=== PATIENT | female | born 1970 | race Caucasian/White ===

== ENCOUNTER 2022-10-12 13:45 | Emergency (ER) | payer OTHER ==
[~2022-10-12] VITALS: Ht 175.3 cm; Wt 95.2 kg
[2022-10-12] MEDS ORDERED: RISP.25 PO (14:35)
[2022-10-12] MEDS ORDERED: Prozac20 MG PO (14:35)
== END 2022-10-12 15:00 | disposition home or self-care (01) ==
LOC: ER 13:45
DX: Z76.0 Encounter for issue of repeat prescription (principal); F32.A Depression, unspecified; Z88.1 Allergy status to other antibiotic agents; Z79.899 Other long term (current) drug therapy
CPT/HCPCS: 99281

== ENCOUNTER 2022-11-23 10:16 | Emergency (ER) | payer OTHER ==
[~2022-11-23] VITALS: Ht 154.9 cm; Wt 102.1 kg
[~2022-11-23 10:16] MED LIST: HYDPAM50 PO; HYDR1TAB94 PO; IBUP800 PO; NABU500 PO; Prozac20 MG PO; RISP.25 PO; TIZA4 PO
[2022-11-23] MEDS ORDERED: Norco 5-325 Ta1 EACH PO (10:36)
== END 2022-11-23 10:38 | disposition home or self-care (01) ==
LOC: ER 10:16
DX: M20.012 Mallet finger of left finger(s) (principal); Z88.1 Allergy status to other antibiotic agents; Z79.899 Other long term (current) drug therapy
CPT/HCPCS: 99282

== ENCOUNTER 2023-01-09 09:01 | Emergency (ER) | payer OTHER ==
[~2023-01-09] VITALS: Ht 154.9 cm; Wt 91.2 kg
[~2023-01-09 09:01] MED LIST changes: +Norco 5-325 Ta1 EACH PO
[2023-01-09] MEDS ORDERED: EUTHYROX50 MC1 PO (09:21)
[2023-01-09 10:41] LABS: BASOPHILS ABSOLUTE AUTO 0.04 K/mm3 (0.00-0.23); BASOPHILS PERCENT AUTO 0 % (0-2); EOSINOPHILS ABSOLUTE AUTO 0.21 K/mm3 (0.00-0.68); EOSINOPHILS PERCENT AUTO 2 % (0-6); Hematocrit 43.8 % (33.0-51.0); Hemoglobin 14.2 g/dL (11.5-16.0); IMMATURE GRAN ABSOLUTE AUTO 0.03 K/mm3 (0.00-0.10); IMMATURE GRAN PERCENT AUTO 0 % (0-1); LYMPHOCYTES PERCENT AUTO 20 % (21-46); MONOCYTES ABSOLUTE AUTO 0.56 K/mm3 (0.16-1.47); MONOCYTES PERCENT AUTO 6 % (4-13); Mean Corpuscular HGB Conc 32.4 g/dL (31.5-36.5); Mean Corpuscular Volume 90 fL (80-100); Mean Platelet Volume 9.9 fL (9.1-12.4); NEUTROPHILS PERCENT AUTO 71 % (41-73); Platelet Count 232 K/mm3 (150-400); RDW Coefficient Variation 13.8 % (11.7-14.2); RDW Standard Deviation 45.7 fL (35.1-46.3); Red Blood Cell Count 4.89 M/mm3 (3.80-5.20); White Blood Cell Count 9.34 K/mm3 (4.00-11.30)
[2023-01-09 11:11] LABS: Thyroid Stimulating Hormone 3.41 uIU/mL (0.360-4.800)
[2023-01-09 11:12] LABS: Albumin, Blood 3.6 g/dL (3.4-5.0); Bilirubin, Total 0.3 mg/dL (0.1-1.0); Bun/Creatinine Ratio 19.5 (12.0-20.0); Calcium, Blood 9.3 mg/dL (8.5-10.1); Creatinine, Blood 0.67 mg/dL (0.40-1.00); Globulin, Blood 3.5 g/dL (2.2-4.0); Potassium, Blood 4.1 mmol/L (3.5-5.5); Total Protein, Blood 7.1 g/dL (6.4-8.2)
[2023-01-09] MEDS ORDERED: PROM25 PO (12:14)
== END 2023-01-09 12:26 | disposition home or self-care (01) ==
LOC: ER 09:01
PROVIDERS: Family Medicine
DX: R42 Dizziness and giddiness (principal); Z79.899 Other long term (current) drug therapy; Z88.1 Allergy status to other antibiotic agents; Z79.890 Hormone replacement therapy
CPT/HCPCS: 36415; 80053; 82947; 84443; 84484; 85025; 93005; 93010; 93242; 99283-25

== ENCOUNTER 2023-04-08 16:25 | Emergency (ER) | payer OTHER ==
[~2023-04-08] VITALS: Ht 154.9 cm; Wt 93.0 kg
[~2023-04-08 16:25] MED LIST changes: +EUTHYROX50 MC1 PO; +PROM25 PO
[2023-04-08 16:46] VITALS: BP 112/59
[2023-04-08] MEDS ORDERED: TRAM50 PO (17:42)
== END 2023-04-08 17:52 | disposition home or self-care (01) ==
LOC: ER 16:25
DX: M17.12 Unilateral primary osteoarthritis, left knee (principal); Z88.1 Allergy status to other antibiotic agents; Z79.899 Other long term (current) drug therapy
CPT/HCPCS: 99283

== ENCOUNTER 2023-05-07 10:21 | Emergency (ER) | payer OTHER ==
[~2023-05-07] VITALS: Ht 154.9 cm; Wt 90.7 kg
[~2023-05-07 10:21] MED LIST changes: +TRAM50 PO
[2023-05-07 10:49] VITALS: BP 116/64
== END 2023-05-07 14:00 | disposition home or self-care (01) ==
LOC: ER 10:21
DX: F25.9 Schizoaffective disorder, unspecified (principal); Z76.0 Encounter for issue of repeat prescription; F41.9 Anxiety disorder, unspecified; Z88.1 Allergy status to other antibiotic agents
CPT/HCPCS: 99283; A9270

== ENCOUNTER 2023-07-13 11:30 | Emergency (ER) | payer OTHER ==
[~2023-07-13] VITALS: Ht 154.9 cm; Wt 102.1 kg
[~2023-07-13 11:30] MED LIST changes: +Hydroxyzine HCl50 MG PO; +LEVSOD25 PO; +[UNRECOGNIZED DRUG - REMARK] IM
[2023-07-13 11:38] VITALS: BP 112/65
[2023-07-13] MEDS ORDERED: ABILIFY MYCITE2 M2 PO (11:40)
[2023-07-13] MEDS ORDERED: IBUP600 PO (12:59)
== END 2023-07-13 13:38 | disposition home or self-care (01) ==
LOC: ER 11:30
DX: M25.512 Pain in left shoulder (principal); Z88.8 Allergy status to other drugs, medicaments and biological substances; Z88.1 Allergy status to other antibiotic agents; Z79.899 Other long term (current) drug therapy; F17.200 Nicotine dependence, unspecified, uncomplicated
CPT/HCPCS: 73030; 99283-25; A9270

== ENCOUNTER 2023-08-15 13:00 | Emergency (ER) | payer OTHER ==
[~2023-08-15] VITALS: Ht 154.9 cm; Wt 90.7 kg
[~2023-08-15 13:00] MED LIST changes: +ABILIFY MYCITE2 M2 PO; +IBUP600 PO
[2023-08-15 13:29] VITALS: BP 131/69
[2023-08-15] MEDS ORDERED: IBUP800 PO (15:53)
== END 2023-08-15 16:18 | disposition home or self-care (01) ==
LOC: ER 13:00
DX: S62.397A Other fracture of fifth metacarpal bone, left hand, initial encounter for closed fracture (principal); F17.200 Nicotine dependence, unspecified, uncomplicated; W11.XXXA Fall on and from ladder, initial encounter; Z79.890 Hormone replacement therapy; Z79.899 Other long term (current) drug therapy
CPT/HCPCS: 73130; 99283-25

== ENCOUNTER 2023-08-31 15:38 | Emergency (ER) | payer OTHER ==
[~2023-08-31] VITALS: Ht 154.9 cm; Wt 89.4 kg
[2023-08-31 15:52] VITALS: BP 118/77
[2023-08-31] MEDS ORDERED: VENLAFAXINE HCL50 MG PO (15:54)
[2023-08-31] MEDS ORDERED: Vistaril50 MG PO (15:54)
== END 2023-08-31 16:11 | disposition home or self-care (01) ==
LOC: ER 15:38
DX: Z76.0 Encounter for issue of repeat prescription (principal); F41.9 Anxiety disorder, unspecified; F31.9 Bipolar disorder, unspecified; Z88.1 Allergy status to other antibiotic agents; Z79.899 Other long term (current) drug therapy; F17.290 Nicotine dependence, other tobacco product, uncomplicated
CPT/HCPCS: 99281

== ENCOUNTER 2023-10-04 09:14 | Emergency (ER) | payer OTHER ==
[~2023-10-04] VITALS: Ht 154.9 cm; Wt 90.7 kg
[~2023-10-04 09:14] MED LIST changes: +VENLAFAXINE HCL50 MG PO; +Vistaril50 MG PO
[2023-10-04 10:15] VITALS: BP 103/71
[2023-10-04] MEDS ORDERED: PALI6TA PO (10:34)
== END 2023-10-04 10:38 | disposition home or self-care (01) ==
LOC: ER 09:14
DX: Z76.0 Encounter for issue of repeat prescription (principal); F31.9 Bipolar disorder, unspecified; F25.9 Schizoaffective disorder, unspecified; Z79.899 Other long term (current) drug therapy; Z88.8 Allergy status to other drugs, medicaments and biological substances
CPT/HCPCS: 99282

== ENCOUNTER 2023-11-24 14:43 | Emergency (ER) | payer OTHER ==
[~2023-11-24] VITALS: Ht 154.9 cm; Wt 68.0 kg
[~2023-11-24 14:43] MED LIST changes: +PALI6TA PO
[2023-11-24 14:54] VITALS: BP 118/68
[2023-11-24] MEDS ORDERED: VENLAFAXINE HCL50 MG PO (15:06)
[2023-11-24] MEDS ORDERED: HYDPAM100 PO (15:06)
[2023-11-24] MEDS ORDERED: PALI6TA PO (15:06)
== END 2023-11-24 15:32 | disposition home or self-care (01) ==
LOC: ER 14:43
DX: Z76.0 Encounter for issue of repeat prescription (principal); F31.9 Bipolar disorder, unspecified; F20.9 Schizophrenia, unspecified; F17.290 Nicotine dependence, other tobacco product, uncomplicated; Z88.1 Allergy status to other antibiotic agents; Z88.8 Allergy status to other drugs, medicaments and biological substances; Z79.899 Other long term (current) drug therapy; Z79.890 Hormone replacement therapy
CPT/HCPCS: 99281; A9270

== ENCOUNTER 2023-11-26 14:07 | Emergency (ER) | payer OTHER ==
[~2023-11-26] VITALS: Ht 154.9 cm; Wt 90.7 kg
[~2023-11-26 14:07] MED LIST changes: +HYDPAM100 PO
[2023-11-26 14:34] VITALS: BP 135/66
== END 2023-11-26 16:00 | disposition home or self-care (01) ==
LOC: ER 14:07
DX: R53.83 Other fatigue (principal); Z79.899 Other long term (current) drug therapy; Z79.890 Hormone replacement therapy; Z88.8 Allergy status to other drugs, medicaments and biological substances
CPT/HCPCS: 99284

== ENCOUNTER 2024-04-22 11:24 | Emergency (ER) | payer OTHER ==
[~2024-04-22] VITALS: Ht 154.9 cm; Wt 76.7 kg
[2024-04-22 11:57] VITALS: BP 130/72
[2024-04-22] MEDS ORDERED: Diphth,Pertuss(Acell),Tet Vac 0.5 ML VIAL IM ONE (12:35)
== END 2024-04-22 13:11 | disposition home or self-care (01) ==
LOC: ER 11:24
DX: S90.812A Abrasion, left foot, initial encounter (principal); W25.XXXA Contact with sharp glass, initial encounter; F25.9 Schizoaffective disorder, unspecified; Z79.899 Other long term (current) drug therapy
CPT/HCPCS: 73620; 90471; 90715; 99283-25